=== PATIENT | female | born 1990 | race Caucasian/White ===

== ENCOUNTER 2017-03-06 11:43 | Emergency (ER) | payer OTHER ==
[2017-03-06 11:57] VITALS: BP 106/61; PULSE 84; TEMP 97.8; BMI 21.9
[2017-03-06 12:23] LABS: URINE APPEARANCE CLEAR; URINE BILIRUBIN NEGATIVE (NEGATIVE); URINE BLOOD NEGATIVE (NEGATIVE); URINE COLOR LT. YELLOW; URINE GLUCOSE (UA) NEGATIVE (NEGATIVE); URINE KETONE NEGATIVE (NEGATIVE); URINE NITRITE NEGATIVE (NEGATIVE); URINE PROTEIN NEGATIVE (NEGATIVE); URINE UROBILINOGEN 0.2 E.U/dl E.U./dl (0.2-1.0)
[2017-03-06 12:24] LABS: URINE LEUK ESTERASE 1+ (NEGATIVE)
[2017-03-06 12:25] LABS: URINE BACTERIA MODERATE /hpf (NONE SEEN); URINE RBC 0-3 /hpf (0-3)
--- NOTE | 2017-03-06 12:31 | PDOC ---
History of Present Illness - General Chief Complaint: Pain Stated Complaint: BACK PAIN/urinary complaints Time Seen by Provider: 03/06/17 12:12 History Source: Patient Exam Limitations: No Limitations - History of Present Illness Initial Comments: 03/06/17 12:21 Patient is a 26-year-old female presents with urinary retention, pain, intermittent back pain last week that stopped. Symptoms started again today. She denies any sexual activity for several months. Menses last week. Reports that she has pressure when she has to urinate and is nervous to go because of pain. Past Medical History: Denies. Allergies: Toradol Medications: None Family History: Non-contributory Social History: Denies smoking, alcohol use, or IVDU Review of Systems GENERAL/CONSTITUTIONAL: No fever or chills. No weakness. No weight change. HEAD, EYES, EARS, NOSE AND THROAT: No change in vision. No ear pain or discharge. No sore throat. CARDIOVASCULAR: No chest pain or shortness of breath. RESPIRATORY: No cough, wheezing, or hemoptysis. GASTROINTESTINAL: No nausea, vomiting, diarrhea or constipation. No rectal bleeding. GENITOURINARY: No dysuria and frequency, or change in urination. MUSCULOSKELETAL: No joint or muscle swelling or pain. No neck or back pain. SKIN : No rash or easy bruising. Physical Exam: GENERAL: The patient is awake, alert, and fully oriented, in no acute distress. LUNGS: Breath sounds equal, clear to auscultation bilaterally. No wheezes, and no crackles. HEART: Regular rate and rhythm, normal S1 and S2 without murmur, rub or gallop. ABDOMEN: Soft, mid lower quadrant tenderness, No guarding, no rebound. No masses. No bruising or abrasions MUSCULOSKELETAL: Normal range of motion, no edema. No clubbing or cyanosis. No cords, erythema, or tenderness. No CVA Tenderness with fist palpation. NEUROLOGICAL: Cranial nerves II through XII grossly intact. Normal speech, normal gait. SKIN: Warm, Dry, normal turgor, no rashes or lesions noted. 03/06/17 12:36 03/06/17 12:38 Past History - Past Medical History Allergies/Adverse Reactions: Allergies Allergy/AdvReac Type Severity Reaction Status Date / Time No Known Drug Allergies Allergy Verified 03/06/17 11:56 ketorolac tromethamine AdvReac Verified 03/06/17 11:57 [From Toradol] Home Medications: Ambulatory Orders Nitrofurantoin Monohyd/M-Cryst [Macrobid -] 100 mg PO BID #14 capsule 03/06/17 Anemia: No Asthma: Yes Cancer: No Cardiac Disorders: No Diabetes: No HTN: No Seizures: No Thyroid Disease: No - Surgical History Abdominal Surgery: Yes (gallstone removal) Cholecystectomy: Yes - Reproductive History (#): 2 Para: 1 Cervical CA: No Dysfunctional Uterine Bleeding: No Ectopic : No Endometrial CA: No Polycystic Ovaries: No Therapeutic (s) & number: No Tubal Ligation: No Spontaneous : 1 - Psycho/Social/Smoking Cessation Hx Anxiety: No Suicidal Ideation: No Smoking Status: Yes Smoking History: Current every day smoker Have you smoked in the past 12 months: Yes Number of Cigarettes Smoked Daily: 2 If you are a former smoker, when did you quit?: h/o of marijuana-last use 03/08 Information on smoking cessation initiated: No 'Breaking Loose' booklet given: 09/19/16 Hx Alcohol Use: No Drug/Substance Use Hx: No Substance Use Type: None Hx Substance Use Treatment: No *Physical Exam - Vital Signs Last Vital Signs Temp Pulse Resp BP Pulse Ox 97.8 F 84 18 106/61 100 03/06/17 11:53 03/06/17 11:53 03/06/17 11:53 03/06/17 11:53 03/06/17 11:53 Medical Decision Making - Medical Decision Making 03/06/17 14:55 A/P : Dysuria and urgency. Mid lower abdominal discomfort. UA, culture and pregnanacy sent, patient states that she is not sexually active. No vaginal discharge, bleeding or pain. UA with trace Leuks and WBC 3-5, however based on symptoms, will treat with macrobid. If pain, fever, bleeding or other concerns return to the ER *DC/Admit/Observation/Transfer Diagnosis at time of Disposition: UTI (urinary tract infection) Qualifiers: Urinary tract infection type: acute cystitis Hematuria presence: without hematuria Qualified Code(s): N30.00 - Acute cystitis without hematuria - Discharge Dispostion Disposition: HOME Condition at time of disposition: Good Admit: No - Prescriptions Prescriptions: Nitrofurantoin Monohyd/M-Cryst [Macrobid -] 100 mg PO BID #14 capsule - Referrals Referrals: Meet Peterson MD [Primary Care Provider] - - Patient Instructions Printed Discharge Instructions: DI for Urinary Tract Infection (UTI), Bladder Infection (Alternative Therapy) Additional Instructions: Increase fluids If any increased pain, back pain, fever, or other concerns return to the ER.
[2017-03-06] MEDS ORDERED: ACETAMINOPHEN 500 MG TABLET (FP) PO ONE (12:41)
[2017-03-06] MEDS ORDERED: ACETAMINOPHEN 325 MG TABLET (FP) ONE (12:45)
[2017-03-06] MEDS ORDERED: NITROFURANTOIN MACROCRYSTAL 50 MG CAPSULE (FP) PO SCH (12:45)
[2017-03-06] MEDS ORDERED: NITROFURANTOIN MACROCRYSTAL 50 MG CAPSULE (FP) ONE (12:45)
== END 2017-03-06 12:48 | disposition home or self-care (01) ==
LOC: JERFT 11:43
DX: N30.00 Acute cystitis without hematuria (principal); J45.909 Unspecified asthma, uncomplicated; Z87.19 Personal history of other diseases of the digestive system; Z72.0 Tobacco use
CPT/HCPCS: 81003; 81015; 84703; 87086; 99281-25

== ENCOUNTER 2017-03-13 21:11 | Emergency (ER) | payer OTHER ==
[2017-03-13 21:23] VITALS: BP 103/69; PULSE 62; TEMP 98; BMI 21.4
[2017-03-13] MEDS ORDERED: morphine CARPU-JECT 2 MG/1 ML DISP.SYRIN IVPUSH ONE (22:21)
[2017-03-13] MEDS ORDERED: SODIUM CHLORIDE 0.9% 1000 ML INFUS.BAG IV ONE (22:21)
--- NOTE | 2017-03-13 22:30 | PDOC ---
History of Present Illness - General Chief Complaint: Pain Stated Complaint: ABD PAIN Time Seen by Provider: 03/13/17 21:32 History Source: Patient Exam Limitations: No Limitations - History of Present Illness Initial Comments: 03/13/17 22:24 Patient is a 26 year old female with no pmhx c/o lower abd pain sudden onset since 2 hours. States she had mild pain early in the day, however got worse pain now 9/10 and radiates to the vagina. Pain is worse when she has to urinate. Pain similar in the past told she had cyst. Denies nausea, vomiting, fever, chills, diarrhea, constipation, had nl bm today. PMD: Dr. Salguero pmhx; as above ALL: toradol GENERAL/CONSTITUTIONAL: [No fever or chills. No weakness. No weight change.] HEAD, EYES, EARS, NOSE AND THROAT: [No change in vision. No ear pain or discharge. No sore throat.] CARDIOVASCULAR: [No chest pain or shortness of breath.] RESPIRATORY: [No cough, wheezing, or hemoptysis.] GASTROINTESTINAL: [No nausea, vomiting, diarrhea or constipation. No rectal bleeding.] GENITOURINARY: (+) dysuria, frequency, or change in urination.] MUSCULOSKELETAL: [No joint or muscle swelling or pain. No neck or back pain.] SKIN AND BREASTS: [No rash or easy bruising.] NEUROLOGIC: [No headache, vertigo, loss of consciousness, or loss of sensation.] PSYCHIATRIC: [No depression or anxiety.] ENDOCRINE: [No increased thirst. No abnormal weight change.] HEMATOLOGIC/LYMPHATIC: [No anemia, easy bleeding, or history of blood clots.] ALLERGIC/IMMUNOLOGIC: [No hives or skin allergy. No latex allergy.] GENERAL: [The patient is awake, alert, and fully oriented, in moderate painfull distress.] HEAD: [Normal with no signs of trauma.] EYES: [Pupils equal, round and reactive to light, extraocular movements intact, sclera anicteric, conjunctiva clear.] ENT: [Ears normal, nares patent, oropharynx clear without exudates. Moist mucous membranes.] NECK: [Normal range of motion, supple without lymphadenopathy, JVD, or masses.] LUNGS: [Breath sounds equal, clear to auscultation bilaterally. No wheezes, and no crackles.] HEART: [Regular rate and rhythm, normal S1 and S2 without murmur, rub.] ABDOMEN: [Soft, (+) tenderness lower abd most in the pelvic b/l, normoactive bowel sounds. No guarding, no rebound. No masses.] PELVIC: nl external genitalia, small amount of creamy discharge in vault, (+) b/ l adenexal tenderness and CMT. EXTREMITIES: [Normal range of motion, no edema. No clubbing or cyanosis. No cords, erythema, or tenderness.] NEUROLOGICAL: [Cranial nerves II through XII grossly intact. Normal speech, normal gait.] PSYCH: [Normal mood, normal affect.] SKIN: [Warm, Dry, normal turgor, no rashes or lesions noted.] Past History - Past Medical History Allergies/Adverse Reactions: Allergies Allergy/AdvReac Type Severity Reaction Status Date / Time No Known Drug Allergies Allergy Verified 03/13/17 21:23 ketorolac tromethamine AdvReac Verified 03/13/17 21:23 [From Toradol] Home Medications: Ambulatory Orders Nitrofurantoin Monohyd/M-Cryst [Macrobid -] 100 mg PO BID #14 capsule 03/06/17 Oxycodone HCl/Acetaminophen [Percocet 5-325 mg Tablet] 1 tab PO Q6H #20 tablet MDD 6 03/14/17 Anemia: No Asthma: Yes Cancer: No Cardiac Disorders: No Diabetes: No HTN: No Seizures: No Thyroid Disease: No - Surgical History Abdominal Surgery: Yes (gallstone removal) Cholecystectomy: Yes - Reproductive History (#): 2 Para: 1 Cervical CA: No Dysfunctional Uterine Bleeding: No Ectopic : No Endometrial CA: No Polycystic Ovaries: No Therapeutic (s) & number: No Tubal Ligation: No Spontaneous : 1 - Psycho/Social/Smoking Cessation Hx Anxiety: No Suicidal Ideation: No Smoking Status: Yes Smoking History: Current every day smoker Have you smoked in the past 12 months: Yes Number of Cigarettes Smoked Daily: 2 If you are a former smoker, when did you quit?: h/o of marijuana-last use 03/08 Information on smoking cessation initiated: No 'Breaking Loose' booklet given: 09/19/16 Hx Alcohol Use: No Drug/Substance Use Hx: No Substance Use Type: None Hx Substance Use Treatment: No *Physical Exam - Vital Signs Last Vital Signs Temp Pulse Resp BP Pulse Ox 98 F 62 18 103/69 99 03/13/17 21:20 03/13/17 21:20 03/13/17 21:20 03/13/17 21:20 03/13/17 21:20 ED Treatment Course - LABORATORY CBC & Chemistry Diagram: 03/13/17 23:21 03/13/17 23:21 Medical Decision Making - Medical Decision Making 03/14/17 01:19 Patient is a 26 year old female with no pmhx c/o lower abd pain sudden onset since 2 hours symptoms consistent with ruptured ovarian cyst will get labs and US. will entertain CT scan if US neg. 03/14/17 01:18 Report Date: 03/13/2017 23:21:00 Report Status: Preliminary === Begin of Report Content Referring Physician: Patient Name: Jaclyn Aguilar This is a preliminary report by imaging irrigation equipment installer Exam: Transabdominal and endovaginal pelvic sonogram and duplex sonography Images: 72 Clinical indication: Pelvic pain Findings: The uterus is anteverted and measures 7.7 x 4.4 x 6.5 cm on transabdominal images. The left ovary measures 2.5 x 1.6 x 1.9 cm and demonstrates normal arterial flow on color Doppler images. The right ovary measures 1.9 x 2 x 1.8 cm and contains a 1.5 cm cyst. Normal arterial flow is seen in the parenchyma and color Doppler images. On endovaginal images the endometrium measures 2 mm in diameter within normal limits. The left ovary has a normal appearance and demonstrates normal arterial flow on color Doppler images. A 1.4 cm cyst is present in the right ovary. The right ovary has an otherwise normal appearance and demonstrates normal arterial flow on color Doppler images. No free fluid seen. Impression: Ovarian cysts noted on the right. Otherwise normal appearance of the ovaries with normal vascular flow seen bilaterally. Normal appearance of the uterus and endometrium. THIS DOCUMENT HAS BEEN ELECTRONICALLY SIGNED Aakash Liu M.D. 00:29 PINO Mcgee Please call Imaging Tile Helper [phone] with questions Continues to be in pain will give morphine 2 mg IV. At this point we'll send patient for a CT of the abdomen and pelvis, Patient Name: Jaclyn Aguilar This is a preliminary report by imaging irrigation equipment installer Exam: Contrast-enhanced CT abdomen and pelvis Images: 445 Clinical indication : Lower abdominal pain. A prior examination performed on December 05, 2012 was reviewed. Findings: The lung bases are clear. The patient is status post cholecystectomy with mild central intrahepatic and extrahepatic biliary duct dilatation, not significantly changed from the prior. The spleen and pancreas have a normal appearance. The adrenal glands are unremarkable. The kidneys have a normal appearance and enhance symmetrically. There is no evidence of urinary tract obstruction. The gastrointestinal tract does not appear obstructed. No thickened or dilated bowel is seen. The appendix has a normal appearance. There is no mesenteric infiltration. The uterus is anteverted. No adnexal masses are seen. A peripherally enhancing hypodensity in the left adnexa is consistent with a cyst. The urinary bladder is unremarkable. A small amount of free fluid is present in the cul-de-sac. No abdominal or pelvic adenopathy is seen. No lytic or blastic destructive osseous lesions are seen. Impression: Collapse luteal cyst in the left adnexa with a small amount of fluid seen in the left adnexa and cul-de-sac. These findings are consistent with a ruptured cyst. THIS DOCUMENT HAS BEEN ELECTRONICALLY SIGNED Aakash Liu M.D. 03/14/2017 02:53 PINO Mcgee Please call Imaging Tile Helper [phone] with questions Patient is currently pain free I discussed the physical exam findings, ancillary test results and final diagnoses with the patient. I answered all of the patient's questions. The patient was satisfied with the care received and felt comfortable with the discharge plan and treatment plan. The Patient agrees to follow up with the primary care physician/POLITICAL CONSULTANT within 24-72 hours. *DC/Admit/Observation/Transfer Diagnosis at time of Disposition: Ruptured cyst of ovary - Discharge Dispostion Disposition: HOME Condition at time of disposition: Stable - Prescriptions Prescriptions: Oxycodone HCl/Acetaminophen [Percocet 5-325 mg Tablet] 1 tab PO Q6H #20 tablet MDD 6 - Referrals Referrals: Meet Peterson MD [Primary Care Provider] - - Patient Instructions Printed Discharge Instructions: DI for Ovarian Cyst Removal Additional Instructions: Take tylneol for pain, follow up with your POLITICAL CONSULTANT, return to ED if worsening
[2017-03-13] MEDS ORDERED: morphine CARPU-JECT 2 MG/1 ML DISP.SYRIN ONE (23:07)
[2017-03-13 23:30] LABS: BASOPHIL 1.2 % (0-2.0); EOSINOPHIL 1.4 % (0-4.5); MCH 30.7 pg (25.7-33.7); MCHC 32.8 g/dl (32.0-36.0); MEAN CELL VOLUME 93.5 fl (80-96); MEAN PLT VOLUME 9.3 fl (7.5-11.1); NEUTROPHILS 55.5 % (42.8-82.8); PLATELET COUNT 248 K/MM3 (134-434); RDW 12.7 % (11.6-15.6); WHITE BLOOD COUNT 10.2 K/mm3 (4.0-10.0)
[2017-03-13 23:32] LABS: URINE APPEARANCE CLEAR; URINE BILIRUBIN NEGATIVE (NEGATIVE); URINE BLOOD NEGATIVE (NEGATIVE); URINE COLOR STRAW; URINE GLUCOSE (UA) NEGATIVE (NEGATIVE); URINE KETONE NEGATIVE (NEGATIVE); URINE NITRITE NEGATIVE (NEGATIVE); URINE PROTEIN NEGATIVE (NEGATIVE); URINE UROBILINOGEN NEGATIVE E.U./dl (0.2-1.0)
[2017-03-13 23:33] LABS: URINE LEUK ESTERASE TRACE (NEGATIVE)
[2017-03-13 23:37] LABS: URINE BACTERIA RARE /hpf (NONE SEEN); URINE RBC <1 /hpf (0-3); URINE WBC 8 /hpf (3-5)
[2017-03-14 00:01] LABS: ALBUMIN 4.4 g/dl (3.4-5.0); ALK PHOS 54 U/L (45-117); ANION GAP 10 (8-16); BILIRUBIN,TOTAL 0.6 mg/dL (0.2-1.0); CALCIUM 9.4 mg/dL (8.5-10.1); CO2 26 mmol/L (21-32); CREATININE 0.6 mg/dL (0.55-1.02); GLUCOSE,RANDOM 73 mg/dL (74-106); SGOT/AST 22 U/L (15-37); SGPT/ALT 15 U/L (12-78); TOT PROT 7.4 g/dl (6.4-8.2)
[2017-03-14] MEDS ORDERED: morphine CARPU-JECT 2 MG/1 ML DISP.SYRIN IVPUSH ONE (00:51)
[2017-03-14] MEDS ORDERED: morphine CARPU-JECT 2 MG/1 ML DISP.SYRIN ONE (01:03)
== END 2017-03-14 04:21 | disposition home or self-care (01) ==
LOC: JER 21:11
PROC: 3E033NZ Introduction of Analgesics, Hypnotics, Sedatives into Peripheral Vein, Percutaneous Approach (ICD-10-PCS; principal; 2017-03-13)
DX: N83.12 Corpus luteum cyst of left ovary (principal)
CPT/HCPCS: 36415; 74177-TC; 76830-TC; 76856-TC; 80053; 81003; 81015; 83690; 84703; 85025; 87086; 87491; 87591; 96374; 96376; 99282-25

== ENCOUNTER 2017-05-05 23:21 | Emergency (ER) | payer OTHER ==
[2017-05-06 00:03] VITALS: BP 110/77; PULSE 61; TEMP 98.5; BMI 24.2
[2017-05-06] MEDS ORDERED: SODIUM CHLORIDE 1,000 ML IV STA (00:18)
[2017-05-06] MEDS ORDERED: ACETAMINOPHEN 325 MG TABLET (FP) PO ONE (00:18)
--- NOTE | 2017-05-06 00:19 | PDOC ---
History of Present Illness - General Chief Complaint: Pain Stated Complaint: STOMACH PAIN Time Seen by Provider: 05/05/17 23:57 History Source: Patient, Old Records Exam Limitations: No Limitations - History of Present Illness Travel History: No Initial Comments: 05/06/17 00:47 This is a 26-year-old woman with PMH of asthma, ovarian cysts and cholecystectomy who presents today with left pelvic pain radiating to left flank for approximately 10 days. She states she has had this pain before and was treated for UTI without resolution of symptoms. She denies fevers but reports chills. Her LMP was 04/16 and she denies sexual activity in the past year. Currently denies vaginal bleeding, discharge, constipation or rectal bleeding. She states this pain is different then when she was diagnosed with ovarian cysts. 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 Timing/Duration: reports: constant Quality: reports: severe, sharpness Abdominal Pain Onset Location: reports: LLQ Pain Radiation: reports: flank Activities at Onset: reports: none Aggravating Factors: improves with: Change in position Alleviating Factors: improves with: None Past History - Travel Traveled outside of the country in the last 30 days: No Close contact w/someone who was outside of country & ill: No - Past Medical History Allergies/Adverse Reactions: Allergies Allergy/AdvReac Type Severity Reaction Status Date / Time ketorolac tromethamine AdvReac Verified 05/05/17 23:50 [From Toradol] Home Medications: Ambulatory Orders Cefpodoxime Proxetil [Vantin -] 200 mg PO Q12H #20 tablet 05/06/17 Anemia: No Asthma: Yes Cancer: No Cardiac Disorders: No Diabetes: No HTN: No Seizures: No Thyroid Disease: No - Surgical History Abdominal Surgery: Yes (gallstone removal) Cholecystectomy: Yes - Reproductive History (#): 2 Para: 1 Cervical CA: No Dysfunctional Uterine Bleeding: No Ectopic : No Endometrial CA: No Polycystic Ovaries: No Therapeutic (s) & number: No Tubal Ligation: No Spontaneous : 1 - Psycho/Social/Smoking Cessation Hx Anxiety: No Suicidal Ideation: No Smoking Status: Yes Smoking History: Current every day smoker Have you smoked in the past 12 months: Yes Number of Cigarettes Smoked Daily: 3 If you are a former smoker, when did you quit?: h/o of marijuana-last use 03/08 Information on smoking cessation initiated: No 'Breaking Loose' booklet given: 09/19/16 Hx Alcohol Use: No Drug/Substance Use Hx: No Substance Use Type: None Hx Substance Use Treatment: No Abd/GI Specific PMHX - Complaint Specific PMHX Gall Bladder Disease: Yes Review of Systems - Review of Systems Able to Perform ROS?: Yes Is the patient limited [place] proficient: No Constitutional: Yes: Chills HEENTM: No: Symptoms Reported Respiratory: No: Symptoms reported Cardiac (ROS): No: Symptoms Reported ABD/GI: No: Symptoms Reported : Yes: Dysuria, Frequency, Urgency Musculoskeletal: No: Symptoms Reported Integumentary: No: Symptoms Reported Neurological: No: Symptoms reported *Physical Exam - Vital Signs Last Vital Signs Temp Pulse Resp BP Pulse Ox 98.5 F 61 18 110/77 100 05/05/17 23:51 05/05/17 23:51 05/05/17 23:51 05/05/17 23:51 05/05/17 23:51 - Physical Exam General Appearance: Yes: Appropriately Dressed. No: Apparent Distress HEENT: positive: MARILYN, Normal ENT Inspection Neck: positive: Trachea midline, Supple. negative: Tender Respiratory/Chest: positive: Lungs Clear, Normal Breath Sounds. negative: Chest Tender, Respiratory Distress, Accessory Muscle Use Cardiovascular: positive: Regular Rhythm, Regular Rate, S1, S2. negative: Edema , JVD, Murmur Female Pelvic Exam: positive: normal external exam, cervical os closed, normal adnexa, normal size ovaries. negative: CMT, discharge, adnexal tenderness Gastrointestinal/Abdominal: positive: Normal Bowel Sounds, Soft. negative: Tender, Organomegaly Musculoskeletal: positive: Normal Inspection, CVA Tenderness (R) (worse on right compared to left), CVA Tenderness (L) (worse on right compared to left) Extremity: positive: Normal Capillary Refill, Normal Inspection Integumentary: positive: Normal Color, Dry, Warm Neurologic: positive: plant electrician II-XII NML intact, Fully Oriented, Alert, Motor Strength /5 ED Treatment Course - LABORATORY CBC & Chemistry Diagram: 05/06/17 00:45 05/06/17 00:45 Medical Decision Making - Medical Decision Making 05/06/17 00:54 A/P: This is a 26-year-old woman with PMH of asthma, ovarian cysts and cholecystectomy who presents today with left pelvic pain radiating to left flank for approximately 10 days. She states she has had this pain before and was treated for UTI without resolution of symptoms. She denies fevers but reports chills. Her LMP was 04/16 and she denies sexual activity in the past year. Currently denies vaginal bleeding, discharge, constipation or rectal bleeding. She states this pain is different then when she was diagnosed with ovarian cysts. 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 DDx: UTI vs pyelo vs ovarian cysts - UA, C&S, upreg - CBC, CMP - NS 1 liter bolus 05/06/17 01:57 - UA with 3+ Leuk esterase, WBC- 38 - will treat with Keflex 500 qid x7 days - maintenance of way clerk exam WNL I discussed the physical exam findings, ancillary test results and final diagnoses with the patient. I answered all of the patient's questions. The patient was satisfied with the care received and felt comfortable with the discharge plan and treatment plan. The patient will call her doctor within 24 hours to arrange follow-up and will return to the Emergency Department with any new, persistant or worsening symptoms. *DC/Admit/Observation/Transfer Diagnosis at time of Disposition: UTI (urinary tract infection) Qualifiers: Urinary tract infection type: acute pyelonephritis Qualified Code(s): N10 - Acute pyelonephritis - Discharge Dispostion Disposition: HOME Condition at time of disposition: Stable Admit: No - Prescriptions Prescriptions: Cefpodoxime Proxetil [Vantin -] 200 mg PO Q12H #20 tablet - Referrals Referrals: Babak Prabhakar MD [Staff Physician] - - Patient Instructions Printed Discharge Instructions: DI for Urinary Tract Infection (UTI) Additional Instructions: Drink plenty of fluids. Yogurt may be helpful if it contains "live cultures." Take antibiotics as prescribed until you finish all medication. Return to ER for worsening back pain, fevers, nausea, vomiting or any other concerns.
--- NOTE | 2017-05-06 00:37 | PDOC ---
*Physical Exam - Vital Signs Last Vital Signs Temp Pulse Resp BP Pulse Ox 98.5 F 61 18 110/77 100 05/05/17 23:51 05/05/17 23:51 05/05/17 23:51 05/05/17 23:51 05/05/17 23:51 ED Treatment Course - LABORATORY CBC & Chemistry Diagram: 05/06/17 00:45 05/06/17 00:45 Medical Decision Making - Medical Decision Making 05/06/17 00:37 agree with care from TESS Tirado *DC/Admit/Observation/Transfer Diagnosis at time of Disposition: UTI (urinary tract infection) - Discharge Dispostion Disposition: HOME Condition at time of disposition: Stable - Prescriptions Prescriptions: Cefpodoxime Proxetil [Vantin -] 200 mg PO Q12H #20 tablet - Referrals Referrals: Babak Prabhakar MD [Staff Physician] - - Patient Instructions Printed Discharge Instructions: DI for Urinary Tract Infection (UTI) Additional Instructions: Drink plenty of fluids. Yogurt may be helpful if it contains "live cultures." Take antibiotics as prescribed until you finish all medication. Return to ER for worsening back pain, fevers, nausea, vomiting or any other concerns.
[2017-05-06] MEDS ORDERED: ACETAMINOPHEN 325 MG TABLET (FP) ONE (00:49)
[2017-05-06 01:07] LABS: URINE APPEARANCE SLCLOUDY; URINE BILIRUBIN NEGATIVE (NEGATIVE); URINE BLOOD NEGATIVE (NEGATIVE); URINE COLOR YELLOW; URINE GLUCOSE (UA) NEGATIVE (NEGATIVE); URINE KETONE NEGATIVE (NEGATIVE); URINE NITRITE NEGATIVE (NEGATIVE); URINE PROTEIN NEGATIVE (NEGATIVE); URINE UROBILINOGEN NEGATIVE mg/dL (0.2-1.0)
[2017-05-06 01:10] LABS: BASOPHIL 0.5 % (0-2.0); EOSINOPHIL 2.2 % (0-4.5); MCH 31.8 pg (25.7-33.7); MCHC 33.8 g/dl (32.0-36.0); NEUTROPHILS 53.4 % (42.8-82.8); PLATELET COUNT 267 K/MM3 (134-434); RDW 12.5 % (11.6-15.6); WHITE BLOOD COUNT 8.9 K/mm3 (4.0-10.0)
[2017-05-06 01:13] LABS: URINE LEUK ESTERASE 3+ (NEGATIVE)
[2017-05-06 01:23] LABS: URINE HYALINE CAST 5 /lpf; URINE MUCUS MANY; URINE RBC 9 /hpf (0-3); URINE WBC 38 /hpf (3-5)
[2017-05-06 01:42] LABS: ALBUMIN 3.7 g/dl (3.4-5.0); ALK PHOS 50 U/L (45-117); ANION GAP 6 (8-16); BILIRUBIN,TOTAL 0.3 mg/dL (0.2-1.0); CALCIUM 8.9 mg/dL (8.5-10.1); CO2 29 mmol/L (21-32); CREATININE 0.6 mg/dL (0.55-1.02); GLUCOSE,RANDOM 82 mg/dL (74-106); SGOT/AST 12 U/L (15-37); SGPT/ALT 17 U/L (12-78); TOT PROT 6.6 g/dl (6.4-8.2)
== END 2017-05-06 02:07 | disposition home or self-care (01) ==
LOC: JER 23:21
PROC: 3E0337Z Introduction of Electrolytic and Water Balance Substance into Peripheral Vein, Percutaneous Approach (ICD-10-PCS; principal; 2017-05-05)
DX: N10 Acute pyelonephritis (principal); J45.909 Unspecified asthma, uncomplicated; F17.210 Nicotine dependence, cigarettes, uncomplicated
CPT/HCPCS: 36415; 80053; 81003; 81015; 84703; 85025; 87086; 99283-25

== ENCOUNTER 2020-12-06 04:27 | Emergency (ER) | payer OTHER ==
[2020-12-06 04:37] VITALS: BMI 25.2
[2020-12-06] MEDS ORDERED: ACETAMINOPHEN 1000 MG/100 ML VIAL (NON FORMULARY) IVPB ONE (05:04)
[2020-12-06] MEDS ORDERED: ACETAMINOPHEN INJECTION 100 ML IVPB ONE (05:11)
[2020-12-06 05:25] LABS: INR 1.09 (0.83-1.09); PROTHROMBIN TIME (PATIENT) 13.1 SEC (9.7-13.0)
[2020-12-06 05:28] LABS: ACTIVATED PTT 29.4 SECONDS (25.2-36.5)
[2020-12-06 05:31] LABS: POTASSIUM 3.8 mmol/L (3.5-5.1)
[2020-12-06 05:33] LABS: ALBUMIN 3.5 g/dl (3.4-5.0); BLOOD UREA NITROGEN 13.1 mg/dL (7-18); CALCIUM 8.7 mg/dL (8.5-10.1)
[2020-12-06 05:37] LABS: CREATININE 0.8 mg/dL (0.55-1.3)
[2020-12-06 05:38] LABS: BILIRUBIN,TOTAL 0.5 mg/dL (0.2-1); TOT PROT 6.7 g/dl (6.4-8.2)
[2020-12-06 05:57] LABS: BASO % 0.3 % (0-2.0); EOS % 0.6 % (0-4.5); HEMATOCRIT 35.7 % (32.4-45.2); HEMOGLOBIN 12.2 GM/dL (10.7-15.3); LYMPH % 10.4 % (8-40); MCH 32.3 pg (25.7-33.7); MCHC 34.2 g/dl (32.0-36.0); MEAN CELL VOLUME 94.3 fl (80-96); MEAN PLT VOLUME 8.1 fl (7.5-11.1); MONO % 5.6 % (3.8-10.2); NEUT % 83.1 % (42.8-82.8); PLATELET COUNT 261 K/MM3 (134-434); RBC 3.78 M/mm3 (3.60-5.2); RDW 12.6 % (11.6-15.6); WHITE BLOOD COUNT 16.3 K/mm3 (4.0-10.0)
[2020-12-06 08:30] LABS: PH,URINE 7.5 (5.0-8.0); URINE APPEARANCE Clear; URINE BILIRUBIN Negative (NEGATIVE); URINE COLOR Yellow; URINE GLUCOSE (UA) Negative (NEGATIVE); URINE KETONE Negative (NEGATIVE); URINE LEUK ESTERASE Negative (NEGATIVE); URINE NITRITE Negative (NEGATIVE); URINE PROTEIN Negative (NEGATIVE)
[2020-12-06 09:06] VITALS: BP 156/69; PULSE 70; TEMP 98
[2020-12-06] MEDS ORDERED: LIDOCAINE HCL 1%, 10 MG/ML (20ML VIAL) ONE (09:09)
[2020-12-06 09:22] LABS: EPI CELLS 7.8 /uL (0-25.1); HYALINE CASTS 7.8 /uL (0-3.1); URINE BACTERIA 201.8 /uL (0-1359); URINE RBC 27.4 /uL (0-23.9)
== END 2020-12-06 09:38 | disposition home or self-care (01) ==
LOC: JER 04:27
PROC: 3E0333Z Introduction of Anti-inflammatory into Peripheral Vein, Percutaneous Approach (ICD-10-PCS; principal; 2020-12-06)
PROC: 3E02329 Introduction of Other Anti-infective into Muscle, Percutaneous Approach (ICD-10-PCS; 2020-12-06)
DX: N85.8 Other specified noninflammatory disorders of uterus (principal)
CPT/HCPCS: 36415; 76817-TC; 80053; 81003; 83690; 84702; 84703; 85025; 85610; 85730; 86850; 86900; 86901; 87086; 99285-25; J0131